=== PATIENT | male | born 1975 | race Caucasian/White ===

== ENCOUNTER → 2020-04-19 | Outpatient (CLI) | payer OTHER ==
[~2020-04-19] MED LIST: 0.9 % SODIUM CHLORIDE 10 ML VIAL. ONE; BUPIVACAINE MPF 0.25% 10 ML VIAL. ONE; DEXAMETHASONE SOD PHOS 10 MG/ML VIAL. ONE; IOHEXOL 300 MG/ML 50 ML VIAL. ONE; LIDOCAINE 1% PF 30 ML VIAL. ONE
[2020-04-19 14:15] VITALS: BP 136/69
== END | disposition home or self-care (01) ==
LOC: SURG 13:06
PROVIDERS: ATTEND Anesthesiology
DX: M54.16 Radiculopathy, lumbar region (principal); M54.14 Radiculopathy, thoracic region; M96.1 Postlaminectomy syndrome, not elsewhere classified; Z88.8 Allergy status to other drugs, medicaments and biological substances; Z98.890 Other specified postprocedural states; Z79.899 Other long term (current) drug therapy
CPT/HCPCS: 64483; J1100; J3490; Q9967

== ENCOUNTER → 2021-01-17 | Day surgery (SDC) | payer OTHER ==
[~2021-01-17] MED LIST changes: -0.9 % SODIUM CHLORIDE 10 ML VIAL. ONE; +VITAMIN D
[2021-01-17 09:17] VITALS: BP 108/72
== END | disposition home or self-care (01) ==
LOC: SURG 08:31
PROVIDERS: ATTEND Anesthesiology
DX: M54.16 Radiculopathy, lumbar region (principal); Z79.899 Other long term (current) drug therapy; Z88.6 Allergy status to analgesic agent; Z88.8 Allergy status to other drugs, medicaments and biological substances
CPT/HCPCS: 64483; J1100; J3490; Q9967

== ENCOUNTER → 2021-06-20 | Day surgery (SDC) | payer OTHER ==
[2021-06-20 12:29] VITALS: BP 109/78
== END | disposition home or self-care (01) ==
LOC: SURG 11:06
PROVIDERS: ATTEND Anesthesiology
DX: M54.16 Radiculopathy, lumbar region (principal); Z88.8 Allergy status to other drugs, medicaments and biological substances; Z79.899 Other long term (current) drug therapy; Z98.890 Other specified postprocedural states
CPT/HCPCS: 64483; A4209; A4657; A4930; J1100; J3490; Q9967

== ENCOUNTER → 2021-07-18 | Day surgery (SDC) | payer OTHER ==
[~2021-07-18] MED LIST changes: -BUPIVACAINE MPF 0.25% 10 ML VIAL. ONE; -DEXAMETHASONE SOD PHOS 10 MG/ML VIAL. ONE; -IOHEXOL 300 MG/ML 50 ML VIAL. ONE; -LIDOCAINE 1% PF 30 ML VIAL. ONE
[2021-07-18 11:36] VITALS: BP 133/78
== END | disposition home or self-care (01) ==
LOC: SURG 11:12
PROVIDERS: ATTEND Anesthesiology
DX: M54.12 Radiculopathy, cervical region (principal); M54.16 Radiculopathy, lumbar region; Z79.899 Other long term (current) drug therapy; Z98.890 Other specified postprocedural states; Z88.8 Allergy status to other drugs, medicaments and biological substances
CPT/HCPCS: 99204; G0463

== ENCOUNTER → 2021-08-01 | Day surgery (SDC) | payer OTHER ==
[~2021-08-01] MED LIST changes: +0.9 % SODIUM CHLORIDE 10 ML VIAL. ONE; +DEXAMETHASONE SOD PHOS 10 MG/ML VIAL. ONE; +IOHEXOL 300 MG/ML 50 ML VIAL. ONE; +LIDOCAINE 1% PF 30 ML VIAL. ONE
[2021-08-01 11:42] VITALS: BP 128/82
== END | disposition home or self-care (01) ==
LOC: SURG 10:40
PROVIDERS: ATTEND Anesthesiology
DX: M54.12 Radiculopathy, cervical region (principal); Z88.8 Allergy status to other drugs, medicaments and biological substances; M54.16 Radiculopathy, lumbar region; Z79.899 Other long term (current) drug therapy; Z98.890 Other specified postprocedural states; Z87.891 Personal history of nicotine dependence
CPT/HCPCS: 62321; A4209; A4657; A4930; J1100; Q9967